=== PATIENT | male | born 2000 | race Caucasian/White ===

== ENCOUNTER 2019-11-29 18:22 | Emergency (ER) | payer BC, SELFPAY ==
--- NOTE | 2019-11-29 18:24 | PC.NURSE ---
Pt cursing at nurse at intake to get him some fucking pain meds . Explained to pt and father that an exam room is being cleaned so he can be seen. Pt and father cursing and leave department stating this is fucking stupid .
== END 2019-11-29 18:24 | disposition left against medical advice (07) ==
PROVIDERS: PCP Family Medicine
DX: Z53.21 Procedure and treatment not carried out due to patient leaving prior to being seen by health care provider (principal)
CPT/HCPCS: 99199

== ENCOUNTER 2020-03-30 06:51 | Outpatient (NON) | payer OTHER, SELFPAY ==
[2020-03-31 01:50] LABS: SARS-CoV-2 RNA PCR Negative
== END 2020-03-30 06:52 ==
LOC: ANHCOVIDDT 07:17
PROVIDERS: Visit Provider Physician Assistant
DX: Z20.828 Contact with and (suspected) exposure to other viral communicable diseases (principal)
CPT/HCPCS: 87635; C9803; U0003

== ENCOUNTER 2022-03-06 17:25 | Outpatient (CLI) | payer OTHER, SELFPAY ==
--- NOTE | ~2022-03-06 | CT_ITS ---
EXAMINATION: CT brain wo con DATE: 03/06/2022 17:49 INDICATION: Headache. TECHNIQUE: Computed tomography (CT) of the head was performed without intravenous contrast. The mA wa s adjusted according to patient size. Iterative reconstruction technique was employed. The dose-lengt h product was 681.00 mGy-cm. COMPARISON: None FINDINGS: There is no intracranial hemorrhage, acute infarction, or abnormal intracranial mass lesion . The ventricles are normal in size. There is mild mucosal thickening in the paranasal sinuses. The m astoid air cells are normal. There are no pathologically enlarged lymph nodes. IMPRESSION: 1. Normal brain. Reviewed, dictated and finalized at location A. IMPRESSION: 1. Normal brain.
== END 2022-03-06 17:26 | disposition home or self-care (01) ==
PROVIDERS: PCP Family Medicine; Visit Provider Physician Assistant Medical
DX: G44.82 Headache associated with sexual activity (principal)
CPT/HCPCS: 70450